=== PATIENT | female | born 1995 | race African-American/Black ===

== ENCOUNTER 2017-03-10 07:37 | Emergency (ER) | payer OTHER ==
[2017-03-10 07:47] VITALS: BP 152/88; BMI 38.0
[2017-03-10 07:58] LABS: AMNISURE ROM TEST NO MEMBRANES RUPTURE (NO RUPTURE)
== END 2017-03-10 08:20 | disposition home or self-care (01) ==
LOC: ER 07:37
DX: R10.2 Pelvic and perineal pain (principal); Z3A.38 38 weeks gestation of pregnancy
CPT/HCPCS: 84112

== ENCOUNTER 2017-03-11 03:25 | Emergency (ER) | payer OTHER ==
[2017-03-11 03:43] VITALS: BMI 38.0
[2017-03-11 03:52] LABS: BILIRUBIN,URINE NEGATIVE (NEGATIVE); BLOOD/HEMOGLOBIN,URINE 1+ (NEGATIVE); GLUCOSE, URINE NEGATIVE (NEGATIVE); KETONES,URINE NEGATIVE (NEGATIVE); LEUKOCYTE ESTERASE ,URINE 3+ (NEGATIVE); NITRITES,URINE NEGATIVE (NEGATIVE); PROTEIN,URINE 1+ (NEGATIVE); UROBILINOGEN,URINE NORMAL (NORMAL)
[2017-03-11 04:15] LABS: APPEARANCE,URINE TURBID (CLEAR); BACTERIA,URINE TRACE /HPF (NEGATIVE); COLOR,URINE YELLOW (YELLOW); SQUAMOUS EPITHELIAL CELL,UR NUMEROUS /HPF (NEGATIVE); TRICHOMONAS,URINE FEW /HPF (NEGATIVE)
[2017-03-11] MEDS ORDERED: NUBAIN INJ 10 IVP ONE (04:45)
[2017-03-11] MEDS ORDERED: NUBAIN INJ 10 ONE (04:49)
[2017-03-11 17:01] VITALS: BP 140/85
--- NOTE | 2017-03-12 08:10 | DR.PREG ---
HPI - PCP Primary Care Physician: ALEA - Chief Complaint Chief Complaint:: PT STATES" I BEEN HURTING SINCE I LEFT HERE IT'S WORSE I CAN' T STAND THIS PAIN IT HURTS IN MY VAGINA BAD " - Source History Provided: Patient - Mode of Arrival Mode of Arrival: EMS - Timing Onset of Chief Complaint: 03/10/17 PMH - PMH Past Medical History: No Past Medical History: Diabetes Past Surgical History: No - Family History History of Family Medical Conditions: No - Social History Do you use any recreational Drugs:: No - infectious screening In the last 2 months have you had wt loss of >10#?: NO Have you had fever, night sweats or hemotysis?: No Have you traveled outside the country in the last 6 months?: No Isolation: Standard PE - Vital Signs Vitals: Temperature 98.1 F Pulse Rate [Left Brachial] 65 Pulse Rate 71 Respiratory Rate 18 Blood Pressure [Left Arm] 140/85 Blood Pressure 136/92 O2 Sat by Pulse Oximetry 100 ROR - Labs Reviewed Laboratory: Specimen Type Clean catch urine 03/11/17 03:35 Urine Color Yellow (YELLOW) 03/11/17 03:35 Urine Appearance Turbid (CLEAR) 03/11/17 03:35 Urine pH 6.0 (5.0 - 8.0) 03/11/17 03:35 Ur Specific [place] 1.020 (1.000-1.030) 03/11/17 03:35 Urine Protein 1+ (NEGATIVE) 03/11/17 03:35 Urine Glucose (UA) Negative (NEGATIVE) 03/11/17 03:35 Urine Ketones Negative (NEGATIVE) 03/11/17 03:35 Urine Occult Blood 1+ (NEGATIVE) 03/11/17 03:35 Urine Nitrite Negative (NEGATIVE) 03/11/17 03:35 Urine Bilirubin Negative (NEGATIVE) 03/11/17 03:35 Urine Urobilinogen Normal (NORMAL) 03/11/17 03:35 Ur Leukocyte Esterase 3+ (NEGATIVE) 03/11/17 03:35 Urine RBC 3-7 /HPF (NEGATIVE) 03/11/17 03:35 Urine WBC 0-4 /HPF (NEGATIVE) 03/11/17 03:35 Ur Squamous Epith Cells Numerous /HPF (NEGATIVE) 03/11/17 03:35 Urine Bacteria Trace /HPF (NEGATIVE) 03/11/17 03:35 Urine Trichomonas Few /HPF (NEGATIVE) 03/11/17 03:35 Ur Culture Indicated? No/not indicated 03/11/17 03:35 - Discharge Plan Disposition: 01 HOME, SELF-CARE Condition: Stable - Follow ups/Referrals Follow ups/Referrals: INSHA COSBY [Primary Care Provider] - 3 days - Instructions Instructions: [place] Contractions, Third Trimester of , Easy-to -Read Additional Instructions: 1. REST TODAY 2. DRINK PLENTY OF FLUIDS, WATER. 3. RETURN TO ER FOR BRIGHT RED VAGINAL BLEEDING, INCREASE IN PAIN, SPONTANEOUS RUPTURE OF MEMBRANES, DECREASE IN MOVEMENTS. 4. KEEP SCHEDULE INDUCTION DATE OF SaturdayMarch AT 0630.
== END 2017-03-11 17:10 | disposition home or self-care (01) ==
LOC: ER 03:25
DX: O47.03 False labor before 37 completed weeks of gestation, third trimester (principal)
CPT/HCPCS: 81001; 96365; 96374; 99284; A4222; J2300

== ENCOUNTER 2017-03-11 16:15 | Inpatient (IN) | payer OTHER ==
[2017-03-13] MEDS ORDERED: D5 1/2 NS 1L W PITOCIN 20 UNITS/L 20 UNITS/1,000 ML BAG IV ONE (00:19)
[2017-03-13] MEDS ORDERED: D5 1/2 NS 1000 ML 1,000 ML IV ONE (00:19)
[2017-03-13] MEDS ORDERED: NAROPIN EPIDURAL 0.2% + FENTANYL 90MCG 60 ML EPI ONE (00:19)
[2017-03-13] MEDS ORDERED: PITOCIN ONE (00:19)
[2017-03-13] MEDS ORDERED: LR 1000 ML IV 1,000 ML IV ONE (00:31)
[2017-03-13 00:32] LABS: AMNISURE ROM TEST NO MEMBRANES RUPTURE (NO RUPTURE)
[2017-03-13] MEDS ORDERED: NUBAIN INJ 200 MG VIAL MULTIDOSE IVP PRN (00:35)
[2017-03-13] MEDS ORDERED: D5LR 1L W PITOCIN 10 UNITS/L 10 UNITS/1,000 ML BAG IV PRN (00:35)
[2017-03-13] MEDS ORDERED: REGLAN INJ 10 MG VIAL IVP PRN ×2 (00:35→02:35)
[2017-03-13] MEDS ORDERED: D5 1/2 NS 1000 ML 1,000 ML IV SCH (00:35)
[2017-03-13] MEDS ORDERED: PHENERGAN INJ 25 MG IV PRN ×3 (00:35→02:35)
[2017-03-13] MEDS ORDERED: MORPHINE SULFATE INJ 2 MG INJ IVP PRN (00:35)
[2017-03-13] MEDS ORDERED: PITOCIN IVP ONE (00:35)
[2017-03-13 01:09] LABS: BASOPHILS # (AUTO) 0.1 X10^3/uL (0.0-0.1); BASOPHILS % (AUTO) 0.3 % (0.2-1.0); HEMATOCRIT 37.4 % (36.0-47.0); LYMPHOCYTES # (AUTO) 1.6 X10^3/uL (1.3-2.9); LYMPHOCYTES % (AUTO) 6.5 % (21.0-51.0); MEAN CORPUSCULAR HEMOGLOBIN 25.8 pg (27.0-34.0); MEAN CORPUSCULAR HGB CONC 34.7 g/dL (33.0-35.0); MEAN CORPUSCULAR VOLUME 74.5 fL (80.0-100.0); MEAN PLATELET VOLUME 9.5 fL (7.4-11.0); MONOCYTES # (AUTO) 1.9 x10^3/uL (0.3-0.8); MONOCYTES % (AUTO) 7.6 % (0.0-13.0); NEUTROPHILS # (AUTO) 21.4 x10^3/uL (2.2-4.8); NEUTROPHILS % (AUTO) 85.6 % (42.0-75.0); PLATELET COUNT 260 X10^3/uL (150.0-450.0); PLATELET MORPHOLOGY COMMENT NORMAL (NORMAL); RED BLOOD COUNT 5.02 X10^6/uL (3.5-5.4); RED CELL DISTRIBUTION WIDTH 15.8 % (11.6-16.5)
[2017-03-13] MEDS ORDERED: XYLOCAINE 1 % (PLAIN) ONE (01:19)
[2017-03-13 01:26] LABS: ALANINE AMINOTRANSFERASE 17 Units/L (12-78); ALKALINE PHOSPHATASE 132 Units/L (46-116); ASPARTATE AMINO TRANSFERASE 21 Units/L (15-37); BLOOD UREA NITROGEN 12 mg/dL (7-18); CALCIUM 9.1 mg/dL (8.5-10.1); CARBON DIOXIDE 18.7 mmol/L (21-32); CHLORIDE 103 mmol/L (98-107); COR CA(FOR HYPOALB) 9.9 mg/dL (8.5-10.1); COR NA(FOR HYPERGLY) 137 mmol/L (136-145); SODIUM 136 mmol/L (136-145); TOTAL PROTEIN 7.1 g/dL (6.4-8.2); eGFR BLACK RACES > 60 (>60); eGFR NON BLACK RACES > 60 (>60)
[2017-03-13] MEDS ORDERED: MOTRIN TAB 800 MG PO PRN ×2 (01:38→02:35)
--- NOTE | 2017-03-13 01:38 | DR.OB ---
OB Quick Note - Assessment/Plan Assessment/Plan: Delivery Note [employer] 03/13/17 at 1:20am Patient complete and pushing. Head delivered over intact perineum. No nuchal cord. Nose and mouth bulb suctioned. Questionable late meconium noted. Body delivered over intact perineum. Cord clamped x 2 and cut. Infant handed to attendant. Cord sent for gases. Placenta delivered spontaneously / intact / 3 vessel cord. No CVX tears. A small midline second degree tear noted and repaired with 0-vicryl in usual fashion. Viable male , VTX/OA, wt=6'7" and 6/9, stable to NBN. Mother stable to NBN. [id number].
[2017-03-13] MEDS ORDERED: D5 1/2 NS 1000 ML 1,000 ML with PITOCIN 20 UNITS IV SCH ×2 (02:00)
[2017-03-13] MEDS ORDERED: AMBIEN PO PRN (02:35)
[2017-03-13] MEDS ORDERED: MILK OF MAGNESIA PO PRN (02:35)
[2017-03-13] MEDS ORDERED: DERMOPLAST SPRAY TOP PRN (02:35)
[2017-03-13] MEDS ORDERED: ADACEL TDaP IM ONE (02:35)
[2017-03-13 06:14] LABS: HEMATOCRIT 33.4 % (36.0-47.0); HEMOGLOBIN 11.6 g/dL (12.0-16.0)
[2017-03-13] MEDS: D5 1/2 NS 1000 ML 1,000 ML with PITOCIN 20 UNITS IV SCH ×4 (08:13→21:42)
[2017-03-13] MEDS: PRENATAL PLUS PO SCH (08:13)
[2017-03-13] MEDS: ZANTAC PO SCH ×2 (08:14→21:43)
[2017-03-14] MEDS: D5 1/2 NS 1000 ML 1,000 ML with PITOCIN 20 UNITS IV SCH ×2 (03:19)
[2017-03-14] MEDS: PRENATAL PLUS PO SCH (08:28)
[2017-03-14] MEDS: ZANTAC PO SCH (08:28)
[2017-03-14 12:46] VITALS: BP 109/62
== END 2017-03-14 13:32 | disposition home or self-care (01) | DRG 775 ==
LOC: UNDOADMIN 16:15 → LD 16:15 → MED/SURG 03-13 02:15
PROVIDERS: ADMIT Specialist; ATTEND Specialist
PROC: 10E0XZZ Delivery of Products of Conception, External Approach (ICD-10-PCS; principal; 2017-03-13)
PROC: 0KQM0ZZ Repair Perineum Muscle, Open Approach (ICD-10-PCS; 2017-03-13)
PROC: 3E0234Z Introduction of Serum, Toxoid and Vaccine into Muscle, Percutaneous Approach (ICD-10-PCS; 2017-03-13)
DX: O24.410 Gestational diabetes mellitus in pregnancy, diet controlled (principal); Z37.0 Single live birth; O70.1 Second degree perineal laceration during delivery; O77.0 Labor and delivery complicated by meconium in amniotic fluid; Z3A.39 39 weeks gestation of pregnancy; Z23 Encounter for immunization; Z87.42 Personal history of other diseases of the female genital tract
CPT/HCPCS: 36415; 59409; 80053; 80307; 81001; 84112; 85014; 85018; 85025; 86592; 86850; 86900; 86901; 96365; 96374; 99284; A4216; A4222; S0197; G0434; J2001; J2300; J2590; J7042; J7120